=== PATIENT | female | born 1955 | race Caucasian/White ===

== ENCOUNTER 2017-12-26 21:06 | Emergency (ER) | payer OTHER, MEDICAID ==
[~2017-12-26] VITALS: Ht 160 cm; Wt 102.1 kg
[2017-12-26 21:10] VITALS: BP 155/80
--- NOTE | 2017-12-26 21:15 | NUR ---
pt escorted to bed 2 via wheel chair with vss
--- NOTE | 2017-12-26 21:16 | NUR ---
PATIENT PRESENTS TO ED WITH SEVERE RIGHT LEG PAIN X1 DAY. PT SEEN AND EVALUATED AT BEDSIDE BY DR LEWIS. DENIES N/V/D; SKIN IS PINK/WARM/DRY; AAOX4 WHEEL CHAIR ASSITED, ABLE TO ASSIST WITH SELF TRANSFER; LUNGS CLEAR BL; HR EVEN AND REGULAR; PT DENIES ANY FEVER, CP, SOB, OR COUGH AT THIS TIME; PATIENT STATES PAIN OF 10/10 AT THIS TIME; VSS; PATIENT POSITIONED FOR COMFORT; HOB ELEVATED; BEDRAILS UP X2; BED DOWN. ER MD MADE AWARE OF PT STATUS.CONTINUE TO MONITOR.
[2017-12-26] MEDS ORDERED: MORPHINE SULFATE 4 MG/ML SYR IM ONE (21:30)
[2017-12-26] MEDS ORDERED: DIAZEPAM PFS 10 MG/2 ML SYR IM ONE (22:10)
[2017-12-26 22:40] VITALS: BP 143/77
--- NOTE | 2017-12-26 22:40 | NUR ---
Patient discharged with v/s stable. Written and verbal after care instructions given and explained. Patient alert, oriented and verbalized understanding of instructions. Escorted out of ER via wheel chair with nurse and family. All questions addressed prior to discharge. ID band removed. Patient advised to follow up with PMD. Rx of Elizabeth given. Patient educated on indication of medication including possible reaction and side effects. Opportunity to ask questions provided and answered.
== END 2017-12-26 22:40 | disposition home or self-care (01) ==
LOC: MED 21:06
DX: M79.604 Pain in right leg (principal); Z88.1 Allergy status to other antibiotic agents; Z88.0 Allergy status to penicillin; Z88.8 Allergy status to other drugs, medicaments and biological substances; Z86.73 Personal history of transient ischemic attack (TIA), and cerebral infarction without residual deficits; Z95.0 Presence of cardiac pacemaker; Z88.6 Allergy status to analgesic agent
CPT/HCPCS: 96372; 99284; J2270; J3360

== ENCOUNTER 2018-07-23 21:30 | Emergency (ER) | payer OTHER, MEDICAID ==
[~2018-07-23] VITALS: Ht 157.5 cm; Wt 102.1 kg
[2018-07-23 21:49] VITALS: BP 182/91
--- NOTE | 2018-07-23 22:17 | NUR ---
Patient transferred to bed 3 via personal wheelchair, accompanied by family. RN evaluating patient at bedside.
--- NOTE | 2018-07-23 22:24 | NUR ---
central services tech at bedside.
--- NOTE | 2018-07-23 22:30 | NUR ---
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 MODERATE ECCYMOSIS, REDNESS, SWELLING NOTED; NO DISCHARGE OR DEFORMATIES NOTED AT THIS TIME. RADIAL PULSES EQUAL, +2, NON-BOUNDING BILATERALLY. DENIES N/V/D; CP; SOB; LOC. AAOX4. PT IN BED IN GOWN; BED IN LOWER LOCKED POSITION; BEDRAILS UP X2. ER MD MADE AWARE OF PT CONDITION. WILL CONTINUE TO MONITOR. PMH: SEE LIST RX: SEE LIST
[2018-07-23] MEDS ORDERED: ONDANSETRON 4 MG ODT PO ONE (22:50)
[2018-07-23] MEDS ORDERED: MORPHINE SULFATE 4 MG/ML SYR IM ONE (22:50)
[2018-07-23 23:30] VITALS: BP 182/91
--- NOTE | 2018-07-23 23:30 | NUR ---
Patient discharged with v/s stable. Written and verbal after care instructions given and explained. Patient verbalized understanding. Wheel Chair Assisted with by caregiver. All questions addressed prior to discharge. Advised to follow up with PMD.
== END 2018-07-23 23:30 | disposition home or self-care (01) ==
LOC: MED 21:30
DX: S62.314A Displaced fracture of base of fourth metacarpal bone, right hand, initial encounter for closed fracture (principal); S62.316A Displaced fracture of base of fifth metacarpal bone, right hand, initial encounter for closed fracture; I10 Essential (primary) hypertension; Z86.73 Personal history of transient ischemic attack (TIA), and cerebral infarction without residual deficits; Z88.0 Allergy status to penicillin; Z88.6 Allergy status to analgesic agent; Z88.1 Allergy status to other antibiotic agents; Z88.8 Allergy status to other drugs, medicaments and biological substances; W23.0XXA Caught, crushed, jammed, or pinched between moving objects, initial encounter; Y93.89 Activity, other specified; Y92.89 Other specified places as the place of occurrence of the external cause; Y99.8 Other external cause status
CPT/HCPCS: 29125; 73130; 96372; 99283; J2270; Q0162

== ENCOUNTER 2018-07-25 10:13 | Emergency (ER) | payer OTHER, MEDICAID ==
[~2018-07-25] VITALS: Ht 157.5 cm; Wt 102.1 kg
--- NOTE | 2018-07-25 10:25 | NUR ---
PT TAKEN IN WHEELCHAIR TO ER BED 07
[2018-07-25 10:29] VITALS: BP 111/64
--- NOTE | 2018-07-25 10:40 | NUR ---
c/o right 1st digit throbbing pain s/p splint with aimee bandage placement Jul 23, 2018 in our er no fracture noted on right hand x-ray report ---no discoloration or deformity noted, +2 radial pulse <3 sec cap refill ---pt had injured right hand after she accidentally smashed hand between car door and metal pole. hx--blind, cva, htn, pacemaker rx---see list
[2018-07-25] MEDS ORDERED: ONDANSETRON 4 MG/2 ML VIAL IM ONE (11:30)
[2018-07-25] MEDS ORDERED: MORPHINE SULFATE 4 MG/ML SYR IM ONE (11:30)
[2018-07-25 13:56] VITALS: BP 148/76
--- NOTE | 2018-07-25 13:56 | NUR ---
Patient discharged with v/s stable. Written and verbal after care instructions given and explained. Patient alert, oriented and verbalized understanding of instructions. Wheel Chair Assisted with by caregiver. All questions addressed prior to discharge. ID band removed. Patient advised to follow up with PMD. Rx of Fioricet given. Patient educated on indication of medication including possible reaction and side effects. Opportunity to ask questions provided and answered. Addendum: 07/25/18 at 1358 by JANELLE CD copy of xray provided per pt request
== END 2018-07-25 13:56 | disposition home or self-care (01) ==
LOC: MED 10:13
DX: S60.221A Contusion of right hand, initial encounter (principal); I10 Essential (primary) hypertension; E03.9 Hypothyroidism, unspecified; Z86.73 Personal history of transient ischemic attack (TIA), and cerebral infarction without residual deficits; Z88.6 Allergy status to analgesic agent; Z88.1 Allergy status to other antibiotic agents; Z88.0 Allergy status to penicillin; Z88.8 Allergy status to other drugs, medicaments and biological substances; W23.0XXA Caught, crushed, jammed, or pinched between moving objects, initial encounter; Y93.89 Activity, other specified; Y92.89 Other specified places as the place of occurrence of the external cause; Y99.8 Other external cause status
CPT/HCPCS: 29125; 73110; 73130; 96372; 99283; J2270; J2405